=== PATIENT | female | born 1970 | race African-American/Black ===

== ENCOUNTER 2016-11-27 12:27 | Inpatient (IN) | payer OTHER ==
--- NOTE | 2016-11-27 18:33 | HP ---
Admission ROS [facility] - [facility] Chief Complaint: I WANT TO GO TO REHAB Allergies/Adverse Reactions: Allergies Allergy/AdvReac Type Severity Reaction Status Date / Time No Known Allergies Allergy Verified 11/27/16 17:26 History of Present Illness: 46 YEARS OLD FEMALE WITH LONG HISTORY OF ALCOHOL COCAINE NICOTINE DEPENDENCE HAS GERD AND SEIZURE IS ADMITTED TO REHAB Exam Limitations: No Limitations - Ebola screening Have you traveled outside of the country in the last 21 days: No Have you had contact with anyone from an Ebola affected area: No Have you been sick,other than usual withdrawal symptoms: No Do you have a fever: No - Review of Systems Constitutional: Weight Stable EENT: reports: No Symptoms Reported Respiratory: reports: No Symptoms reported Cardiac: reports: No Symptoms Reported GI: reports: Indigestion : reports: No Symptoms Reported Musculoskeletal: reports: No Symptoms Reported Integumentary: reports: No Symptoms Reported Neuro: reports: Seizure (SINCE - LAST EPISODE 2007) Endocrine: reports: No Symptoms Reported Hematology: reports: No Symptoms Reported Psychiatric: reports: Judgement Intact, Orientated x3 Other Systems: Reviewed and Negative Patient History - Patient Medical History Hx Anemia: No Hx Asthma: No Hx Chronic Obstructive Pulmonary Disease (COPD): No Hx Cancer: No Hx Cardiac Disorders: No Hx Congestive Heart Failure: No Hx Hypertension: No Hx Hypercholesterolemia: No Hx Pacemaker: No HX Cerebrovascular Accident: No Hx Seizures: Yes Hx Dementia: No Hx Diabetes: No Hx Gastrointestinal Disorders: Yes Hx Liver Disease: No Hx Genitourinary Disorders: No Hx Sexually Transmitted Disorders: No Hx Renal Disease (ESRD): No Hx Thyroid Disease: No Hx Human Immunodeficiency Virus (HIV): No Hx Hepatitis C: No Hx Depression: No Hx Suicide Attempt: No Hx Bipolar Disorder: Yes Hx Schizophrenia: No - Patient Surgical History Past Surgical History: Yes Hx Neurologic Surgery: No Hx Cataract Extraction: No Hx Cardiac Surgery: No Hx Lung Surgery: No Hx Breast Surgery: No Hx Breast Biopsy: No Hx Abdominal Surgery: No Hx Appendectomy: No Hx Cholecystectomy: Yes (2014) Hx Genitourinary Surgery: No Hx Section: No Hx Orthopedic Surgery: No Hx Hysterectomy: No Anesthesia Reaction: No - PPD History Previous Implant?: Yes Documented Results: Negative w/o proof Implanted On Prior [facility] Admission?: No PPD to be Administered?: Yes - Reproductive History Patient is a Female of Child Bearing Age (11 -55 yrs old): Yes Last Menstrual Period: 11/25/16 Patient : No - Smoking Cessation Smoking history: Current every day smoker Have you smoked in the past 12 months: Yes Aproximately how many cigarettes per day: 10 Cigars Per Day: 0 Hx Chewing Tobacco Use: No Initiated information on smoking cessation: Yes 'Breaking Loose' booklet given: 11/27/16 - Substance & Tx. History Hx Alcohol Use: No (I DO NOT DRINK ALCOHOL) Hx Substance Use: Yes Substance Use Type: Alcohol, Cocaine Hx Substance Use Treatment: Yes - Substances Abused COCAINE Route: Smoking Frequency: Daily Amount used: 300$ Age of first use: 24 Date of Last Use: 11/26/16 Family Disease History - Family Disease History Family Disease History: Diabetes: Father, Heart Disease: Father, Mother ( ), Brother (CARDIAC PACE MAKER), Sister Admission Physical Exam [facility] - Vital Signs Vital Signs: Vital Signs - 24 hr 11/27/16 11/27/16 13:06 13:20 Temperature 96.5 F L 97.6 F Pulse Rate 84 81 Respiratory 20 20 Rate Blood Pressure 123/94 112/56 - Physical General Appearance: Yes: No Apparent Distress, Appropriately Dressed, Obese HEENTM: Yes: Hearing grossly Normal, Normal ENT Inspection, Normocephalic, Normal Voice Respiratory: Yes: Chest Non-Tender, Lungs Clear, Normal Breath Sounds, No Respiratory Distress, No Accessory Muscle Use Neck: Yes: Supple, Trachea in good position Breast: Yes: Breasts Symetrical Cardiology: Yes: Regular Rhythm, Regular Rate, S1, S2 Abdominal: Yes: Non Tender, Soft Genitourinary: Yes: Within Normal Limits Back: Yes: Normal Inspection Musculoskeletal: Yes: full range of Motion, Gait Steady Extremities: Yes: Normal Range of Motion, Non-Tender Neurological: Yes: Fully Oriented, Alert, Motor Strength 5/5, Normal Response, Other (BIPOLAR) Integumentary: Yes: Warm Lymphatic: Yes: Within Normal Limits - Diagnostic (1) Cocaine dependence, uncomplicated Current Visit: Yes Status: Acute (2) Nicotine dependence Current Visit: Yes Status: Acute Qualifiers: Nicotine product type: cigarettes Substance use status: in withdrawal Qualified Code(s): F17.213 - Nicotine dependence, cigarettes, with withdrawal (3) GERD (gastroesophageal reflux disease) Current Visit: Yes Status: Acute Qualifiers: Esophagitis presence: without esophagitis Qualified Code(s): K21.9 - Gastro-esophageal reflux disease without esophagitis (4) Seizure disorder Current Visit: Yes Status: Acute (5) Bipolar II disorder Current Visit: Yes Status: Suspected Cleared for Admission [facility] - Detox or Rehab [facility] Level of Care: Observation Bed Detox Regimen/Protocol: Not Applicable Claeared for Rehab Admission: Yes [facility] Breath Alcohol Content Breath Alcohol Content: 0.026 Vital Signs - Vital Signs Vital Signs Refused: No BP Location: Left Arm - Height Height: 5 ft - Weight Weight: 222 lb Weight Measurement Method: Standing Scale Body Mass Index (BMI): 43.3 - Bowel Function Bowel Movement: Yes Urine Pregancy Test - Result Urine Test Results: Negative- NO Line Present Urine Drug Screen - Control Is Test Valid: Yes - Results Drug Screen Negative: No Urine Drug Screen Results: KEESHA-Cocaine
[2016-11-27 18:39] VITALS: BMI 43.3
[2016-11-27] MEDS ORDERED: LOPERAMIDE HCL 2 MG CAPSULE PO PRN (18:43)
[2016-11-27] MEDS ORDERED: MAGNESIUM HYDROX 2400MG/30ML ORAL SUSPENSION 30 ML CUP PO PRN (18:43)
[2016-11-27] MEDS ORDERED: guaiFENesin/D-METHORPHAN HB 10 ML UNIT-DOSE CUPS PO PRN (18:43)
[2016-11-27] MEDS ORDERED: hydrOXYzine PAMOATE 50 MG CAPSULE (FP) PO PRN (18:43)
[2016-11-27] MEDS ORDERED: MAGNESIUM CITRATE 300 ML BOTTLE PO PRN (18:43)
[2016-11-27] MEDS ORDERED: P-EPHED 60MG/TRIPROLIDI 2.5MG TABLET PO PRN (18:43)
[2016-11-27] MEDS ORDERED: MENTHOL/PHENOL 1 EACH UD MM PRN (18:43)
[2016-11-27] MEDS ORDERED: TUBERCULIN PPD 5 TU/0.1ML VIAL ID ONE (22:47)
[2016-11-27] MEDS: THIAMINE HCL 100 MG TABLET (FP) PO SCH (22:51)
[2016-11-27] MEDS: RANITIDINE HCL 150 MG TABLET (FP) PO SCH (22:51)
[2016-11-27 23:13] LABS: URINE APPEARANCE SLCLOUDY; URINE BILIRUBIN NEGATIVE (NEGATIVE); URINE BLOOD NEGATIVE (NEGATIVE); URINE COLOR YELLOW; URINE GLUCOSE (UA) NEGATIVE (NEGATIVE); URINE KETONE NEGATIVE (NEGATIVE); URINE LEUK ESTERASE NEGATIVE (NEGATIVE); URINE NITRITE NEGATIVE (NEGATIVE); URINE PROTEIN NEGATIVE (NEGATIVE); URINE UROBILINOGEN NEGATIVE E.U./dl (0.2-1.0)
[2016-11-28] MEDS: carBAMazepine 200 MG TABLET PO SCH ×3 (07:50→18:25)
[2016-11-28 10:02] LABS: MCH 28.2 pg (25.7-33.7); MCHC 32.8 g/dl (32.0-36.0); MEAN PLT VOLUME 9.7 fl (7.5-11.1); PLATELET COUNT 223 K/MM3 (134-434); RDW 15.1 % (11.6-15.6); WHITE BLOOD COUNT 5.6 K/mm3 (4.0-10.0)
[2016-11-28 10:22] LABS: ALBUMIN 3.2 g/dl (3.4-5.0); ALK PHOS 82 U/L (45-117); ANION GAP 8 (8-16); BILIRUBIN,TOTAL 0.3 mg/dL (0.2-1.0); CALCIUM 8.6 mg/dL (8.5-10.1); CO2 25 mmol/L (21-32); CREATININE 0.7 mg/dL (0.55-1.02); GLUCOSE,RANDOM 82 mg/dL (74-106); SGOT/AST 8 U/L (15-37); SGPT/ALT 16 U/L (12-78); TOT PROT 6.9 g/dl (6.4-8.2)
[2016-11-28 10:45] LABS: HIV 1 & 2 AB NEGATIVE; HIV 1 AGp24 NEGATIVE
[2016-11-28] MEDS: RANITIDINE HCL 150 MG TABLET (FP) PO SCH ×2 (10:57→22:06)
[2016-11-28] MEDS: PRENATAL VITAMINS W/ FOLIC ACID TABLET (FP) PO SCH (10:57)
[2016-11-28] MEDS: NICOTINE 14 MG/24 HOURS TOPICAL PATCH TD SCH (10:58)
[2016-11-28] MEDS ORDERED: PT OWN MED DRAWER 7, Y5N ONE ×2 (13:36→18:01)
--- NOTE | 2016-11-28 16:27 | EKG ---
Test Reason : Blood Pressure : / mmHG Vent. Rate : 068 BPM Atrial Rate : 068 BPM P-R Int : 142 ms QRS Dur : 094 ms QT Int : 398 ms P-R-T Axes : 053 049 044 degrees QTc Int : 423 ms NORMAL SINUS RHYTHM NORMAL ECG NO PREVIOUS ECGS AVAILABLE Confirmed by ENEDINA BETANCOURT MD ([id number]) on 11/28/2016 4:26:43 PM Referred By: Cindy Schwarz Confirmed By:ENEDINA BETANCOURT MD
[2016-11-28] MEDS: THIAMINE HCL 100 MG TABLET (FP) PO SCH (22:06)
[2016-11-29] MEDS ORDERED: PT OWN MED DRAWER 7, Y5N ONE ×3 (06:04→14:06)
[2016-11-29] MEDS: carBAMazepine 200 MG TABLET PO SCH ×3 (07:17→19:03)
--- NOTE | 2016-11-29 09:56 | HP ---
Psychiatrist Admission - Data Date of interview: 11/29/16 Admission source: [facility] Identifying data: This is the first admission to [address] [place] [address] [facility] for this 46 years old AA female mother of 6 grown children, domiciled,unemployed,supported by PA. Medical History: Significant for GERD,Seizure disorder,Obesity,H/O Cholecystectomy. Psychiatric History: No previous psychiatric history except depressed mood, anxiety at times.She was prescribed Diazepam on and off by her Family doctor. Physical/Sexual Abuse/Trauma History: denies Vital Signs: Vital Signs - 24 hr 11/29/16 11/29/16 11/29/16 00:30 03:30 07:50 Temperature 98.1 F Pulse Rate 67 Respiratory 18 18 18 Rate Blood Pressure 93/64 Allergies/Adverse Reactions: Allergies Allergy/AdvReac Type Severity Reaction Status Date / Time No Known Allergies Allergy Verified 11/27/16 17:26 Date of last physical exam: 11/27/16 Concur with the findings of this exam: Yes - Substance Abuse/Tx History Hx Alcohol Use: No Hx Substance Use: Yes (crack/cocaine since 24 yo progressed to daily use) Substance Use Type: Cocaine Hx Substance Use Treatment: Yes (never completed,4 years of abstinence-longest) - Admission Criteria Previous failed treatment: Yes Poor recovery environment: Yes Comorbidities: Yes Lacks judgement: Yes Mental Status Exam - Mental Status Exam Alert and Oriented to: Time, Place, Person Cognitive Function: Grossly Intact Patient Appearance: Unkempt Mood: Sad Affect: Mood Congruent Patient Behavior: Cooperative Speech Pattern: Clear Voice Loudness: Normal Thought Process: Goal Oriented Thought Disorder: Not Present Hallucinations: Denies Suicidal Ideation: Denies Homicidal Ideation: Denies Insight/Judgement: Fair Sleep: Fair Appetite: Weight gain Muscle strength/Tone: Normal Gait/Station: Normal Psychiatric Findings - Problem List ([place] 1, 2,3) (1) Cocaine dependence, uncomplicated Current Visit: Yes Status: Chronic (2) GERD (gastroesophageal reflux disease) Current Visit: Yes Status: Chronic Qualifiers: Esophagitis presence: without esophagitis Qualified Code(s): K21.9 - Gastro-esophageal reflux disease without esophagitis (3) Nicotine dependence Current Visit: Yes Status: Chronic Qualifiers: Nicotine product type: cigarettes Substance use status: in withdrawal Qualified Code(s): F17.213 - Nicotine dependence, cigarettes, with withdrawal (4) Seizure disorder Current Visit: Yes Status: Chronic (5) Substance induced mood disorder Current Visit: Yes Status: Chronic - Initial Treatment Plan Initial Treatment Plan: Benadryl 50 mg po hs PRN for insomnia.Will monitor progress.
[2016-11-29] MEDS: PRENATAL VITAMINS W/ FOLIC ACID TABLET (FP) PO SCH (10:51)
[2016-11-29] MEDS: RANITIDINE HCL 150 MG TABLET (FP) PO SCH ×2 (10:51→21:57)
[2016-11-29] MEDS: NICOTINE 14 MG/24 HOURS TOPICAL PATCH TD SCH (10:52)
[2016-11-29] MEDS: NICOTINE POLACRILEX 2 MG GUM BC PRN (10:53)
--- NOTE | 2016-11-29 13:49 | PN ---
[facility] Progress Note Note: Tegretol level is low P : Tegretol 200mg po stat repeat level in 2-4 days
[2016-11-29] MEDS ORDERED: carBAMazepine 200 MG TABLET PO ONE (14:02)
[2016-11-29] MEDS: ACETAMINOPHEN 325 MG TABLET (FP) PO PRN ×2 (14:14→19:04)
[2016-11-29] MEDS: diphenhydrAMINE HCL 50 MG CAPSULE PO PRN (21:57)
[2016-11-29] MEDS: THIAMINE HCL 100 MG TABLET (FP) PO SCH (21:57)
[2016-11-30] MEDS: NICOTINE POLACRILEX 2 MG GUM BC PRN ×2 (06:41→10:42)
[2016-11-30] MEDS: ACETAMINOPHEN 325 MG TABLET (FP) PO PRN ×3 (06:42→21:50)
[2016-11-30] MEDS: carBAMazepine 200 MG TABLET PO SCH ×3 (07:10→17:10)
[2016-11-30] MEDS: NICOTINE 14 MG/24 HOURS TOPICAL PATCH TD SCH (10:41)
[2016-11-30] MEDS: PRENATAL VITAMINS W/ FOLIC ACID TABLET (FP) PO SCH (10:41)
[2016-11-30] MEDS: RANITIDINE HCL 150 MG TABLET (FP) PO SCH ×2 (10:41→21:50)
[2016-11-30] MEDS: THIAMINE HCL 100 MG TABLET (FP) PO SCH (21:50)
[2016-11-30] MEDS: diphenhydrAMINE HCL 50 MG CAPSULE PO PRN (21:50)
[2016-12-01] MEDS: ACETAMINOPHEN 325 MG TABLET (FP) PO PRN ×2 (06:13→12:01)
[2016-12-01] MEDS: NICOTINE POLACRILEX 2 MG GUM BC PRN ×2 (06:14→09:21)
[2016-12-01] MEDS: carBAMazepine 200 MG TABLET PO SCH ×3 (07:10→17:30)
[2016-12-01] MEDS: MAG HYDROX/AL HYDROX/SIMETH 30 ML UNIT-DOSE CUP PO PRN ×3 (07:10→17:30)
[2016-12-01] MEDS: NICOTINE 14 MG/24 HOURS TOPICAL PATCH TD SCH (09:20)
[2016-12-01] MEDS: PRENATAL VITAMINS W/ FOLIC ACID TABLET (FP) PO SCH (09:20)
[2016-12-01] MEDS: RANITIDINE HCL 150 MG TABLET (FP) PO SCH ×2 (09:20→21:52)
[2016-12-01] MEDS: THIAMINE HCL 100 MG TABLET (FP) PO SCH (21:52)
[2016-12-02] MEDS: MAG HYDROX/AL HYDROX/SIMETH 30 ML UNIT-DOSE CUP PO PRN (06:27)
[2016-12-02] MEDS: ACETAMINOPHEN 325 MG TABLET (FP) PO PRN ×2 (06:27→21:43)
[2016-12-02] MEDS: NICOTINE POLACRILEX 2 MG GUM BC PRN ×2 (06:28→10:49)
[2016-12-02] MEDS: carBAMazepine 200 MG TABLET PO SCH ×3 (07:44→17:04)
[2016-12-02] MEDS: NICOTINE 14 MG/24 HOURS TOPICAL PATCH TD SCH (10:48)
[2016-12-02] MEDS: RANITIDINE HCL 150 MG TABLET (FP) PO SCH ×2 (10:48→21:41)
[2016-12-02] MEDS: PRENATAL VITAMINS W/ FOLIC ACID TABLET (FP) PO SCH (10:48)
[2016-12-02] MEDS ORDERED: PT OWN MED DRAWER 7, Y5N ONE (17:00)
[2016-12-02] MEDS: COLLOIDAL OATMEAL 1 BAR EACH TP PRN (17:04)
[2016-12-02] MEDS: AMMONIUM LACTATE 12% LOTION 225 GM BOTTLE TP PRN (17:04)
[2016-12-02] MEDS: THIAMINE HCL 100 MG TABLET (FP) PO SCH (21:41)
[2016-12-03] MEDS: ACETAMINOPHEN 325 MG TABLET (FP) PO PRN ×2 (06:29→21:45)
[2016-12-03] MEDS: carBAMazepine 200 MG TABLET PO SCH ×3 (07:10→21:45)
[2016-12-03] MEDS: RANITIDINE HCL 150 MG TABLET (FP) PO SCH ×2 (10:38→21:45)
[2016-12-03] MEDS: PRENATAL VITAMINS W/ FOLIC ACID TABLET (FP) PO SCH (10:38)
[2016-12-03] MEDS: NICOTINE 14 MG/24 HOURS TOPICAL PATCH TD SCH (10:40)
[2016-12-03] MEDS: THIAMINE HCL 100 MG TABLET (FP) PO SCH (21:45)
[2016-12-03] MEDS: diphenhydrAMINE HCL 50 MG CAPSULE PO PRN (21:46)
[2016-12-04] MEDS: ACETAMINOPHEN 325 MG TABLET (FP) PO PRN (06:49)
[2016-12-04] MEDS: NICOTINE POLACRILEX 2 MG GUM BC PRN ×3 (06:50→13:18)
[2016-12-04] MEDS: carBAMazepine 200 MG TABLET PO SCH ×3 (07:52→17:40)
[2016-12-04] MEDS ORDERED: PT OWN MED DRAWER 7, Y5N ONE (09:17)
[2016-12-04] MEDS: RANITIDINE HCL 150 MG TABLET (FP) PO SCH ×2 (10:46→22:56)
[2016-12-04] MEDS: PRENATAL VITAMINS W/ FOLIC ACID TABLET (FP) PO SCH (10:46)
[2016-12-04] MEDS: AMMONIUM LACTATE 12% LOTION 225 GM BOTTLE TP PRN (10:47)
[2016-12-04] MEDS: NICOTINE 14 MG/24 HOURS TOPICAL PATCH TD SCH (10:48)
[2016-12-04] MEDS: IBUPROFEN 400 MG TABLET (FP) PO PRN (15:54)
[2016-12-04] MEDS: THIAMINE HCL 100 MG TABLET (FP) PO SCH (22:56)
[2016-12-05] MEDS: IBUPROFEN 400 MG TABLET (FP) PO PRN (06:20)
[2016-12-05] MEDS: NICOTINE POLACRILEX 2 MG GUM BC PRN ×3 (06:21→16:07)
[2016-12-05] MEDS: carBAMazepine 200 MG TABLET PO SCH ×3 (07:48→18:10)
[2016-12-05] MEDS ORDERED: PT OWN MED DRAWER 7, Y5N ONE ×3 (08:56→22:04)
--- NOTE | 2016-12-05 10:49 | PN ---
Psychiatric Progress Note Vital Signs: Vital Signs Period Temp Pulse Resp BP Sys/Verde Pulse Ox Last 24 Hr 97.7 F 66 18-18 120/81 Date of Session: 12/05/16 Chief Complaint:: "insomnia" HPI: Patient is addressing cocaine, nicotine dependence comorbid substance induced mood disorder. ROS: Significant for GERD,Seizure disorder,Obesity,H/O Cholecystectomy. Current Medications: Active Medications Generic Name Dose Route Start Last Admin Trade Name Freq PRN Reason Stop Dose Admin Acetaminophen 650 mg 11/27/16 18:43 12/04/16 06:49 Tylenol - PO 650 mg Q4H PRN Administration PAIN Al Hydroxide/Mg Hydroxide 30 ml 11/27/16 18:43 12/02/16 06:27 Mylanta Oral Suspension - PO 30 ml Q6H PRN Administration DYSPEPSIA Carbamazepine 200 mg 11/28/16 08:00 12/05/16 07:48 Tegretol - PO 200 mg TIDCM DAVON Administration Colloidal Oatmeal 1 applic 12/02/16 11:59 12/02/16 17:04 Aveeno Soap - TP 1 bar DAILY PRN Administration HYGEINE Diphenhydramine HCl 100 mg 12/05/16 22:00 Benadryl - PO HS DAVON Eucalyptus/Menthol/Phenol/Sorbitol 1 each 11/27/16 18:43 Cepastat Lozenge - MM Q4H PRN SORE THROAT Guaifenesin 10 ml 11/27/16 18:43 Robitussin Dm - PO Q6H PRN COUGH Hydroxyzine Pamoate 50 mg 11/27/16 18:43 Vistaril - PO Q4H PRN AGITATION Ibuprofen 800 mg 12/04/16 14:38 12/05/16 06:20 Motrin - PO 800 mg Q6H PRN Administration FEVER Lactic Acid 1 applic 12/02/16 11:59 12/04/16 10:47 Lac-Hydrin 12 TP 1 applic BID PRN Administration DRY SKIN Loperamide HCl 4 mg 11/27/16 18:43 Imodium - PO Q6H PRN DIARRHEA Magnesium Citrate 300 ml 11/27/16 18:43 Citroma - PO Q48H PRN CONSTIPATION Magnesium Hydroxide 30 ml 11/27/16 18:43 Milk Of Magnesia - PO DAILY PRN CONSTIPATION Nicotine 14 mg 11/28/16 10:00 12/04/16 10:48 Nicoderm Patch - TD Not Given DAILY DAVON Nicotine Polacrilex 2 mg 11/27/16 18:43 12/05/16 06:21 Nicorette Gum - BC 2 mg Q2H PRN Administration NICOTINE REPLACEMENT RX Multivit/Folic Acid/Iron 1 tab 11/28/16 10:00 12/04/16 10:46 Vitamins ([facility]) - PO 1 tab DAILY DAVON Administration Pseudoephedrine/Triprolidine 1 combo 11/27/16 18:43 Actifed - PO TID PRN NASAL CONGESTION Ranitidine HCl 150 mg 11/27/16 22:00 12/04/16 22:56 Zantac - PO 150 mg BID DAVON Administration Thiamine HCl 100 mg 11/27/16 22:00 12/04/16 22:56 Vitamin B1 - PO 100 mg HS DAVON Administration Current Side Effect: No Lab tests ordered: No Lab tests reviewed: Yes Provider note:: Reviewed the chart met with the patient who c/o insomnia, states that she takes 100 mg po hs which she finds more effective than 50 mg po hs, psychoeducation and sleeping hygiene discussed with the patient, will increase Benadryl, continue to monitor progress. Total face to face time:: 30 Mental Status Exam - Mental Status Exam Alert and Oriented to: Time, Place, Person Cognitive Function: Grossly Intact Patient Appearance: Well Groomed Mood: Hopeful Affect: Appropriate, Mood Congruent Patient Behavior: Appropriate, Cooperative Speech Pattern: Clear, Appropriate Voice Loudness: Normal Thought Process: Intact, Goal Oriented Thought Disorder: Not Present Hallucinations: Denies Suicidal Ideation: Denies Homicidal Ideation: Denies Insight/Judgement: Fair Sleep: Poorly, Difficulty falling asleep Appetite: Fair Muscle strength/Tone: Normal Gait/Station: Normal Psychiatric Treatment Plan - Problem List (1) Cocaine dependence, uncomplicated Current Visit: Yes (2) GERD (gastroesophageal reflux disease) Current Visit: Yes Qualifiers: Esophagitis presence: without esophagitis Qualified Code(s): K21.9 - Gastro-esophageal reflux disease without esophagitis (3) Nicotine dependence Current Visit: Yes Qualifiers: Nicotine product type: cigarettes Substance use status: in withdrawal Qualified Code(s): F17.213 - Nicotine dependence, cigarettes, with withdrawal (4) Seizure disorder Current Visit: Yes (5) Substance induced mood disorder Current Visit: Yes
[2016-12-05] MEDS: NICOTINE 14 MG/24 HOURS TOPICAL PATCH TD SCH (10:56)
[2016-12-05] MEDS: RANITIDINE HCL 150 MG TABLET (FP) PO SCH ×2 (10:56→21:51)
[2016-12-05] MEDS: PRENATAL VITAMINS W/ FOLIC ACID TABLET (FP) PO SCH (10:56)
[2016-12-05] MEDS: THIAMINE HCL 100 MG TABLET (FP) PO SCH (21:51)
[2016-12-05] MEDS: diphenhydrAMINE HCL 50 MG CAPSULE PO SCH (21:51)
[2016-12-06] MEDS: IBUPROFEN 400 MG TABLET (FP) PO PRN ×2 (07:04→18:10)
[2016-12-06] MEDS: carBAMazepine 200 MG TABLET PO SCH ×3 (07:04→18:10)
[2016-12-06] MEDS: NICOTINE POLACRILEX 2 MG GUM BC PRN ×2 (07:04→18:11)
[2016-12-06] MEDS: PRENATAL VITAMINS W/ FOLIC ACID TABLET (FP) PO SCH (10:32)
[2016-12-06] MEDS: RANITIDINE HCL 150 MG TABLET (FP) PO SCH ×2 (10:32→22:03)
[2016-12-06] MEDS: NICOTINE 14 MG/24 HOURS TOPICAL PATCH TD SCH (10:33)
[2016-12-06] MEDS: diphenhydrAMINE HCL 50 MG CAPSULE PO SCH (22:03)
[2016-12-06] MEDS: THIAMINE HCL 100 MG TABLET (FP) PO SCH (22:03)
[2016-12-07] MEDS: NICOTINE POLACRILEX 2 MG GUM BC PRN (06:56)
[2016-12-07] MEDS: carBAMazepine 200 MG TABLET PO SCH ×3 (07:04→18:50)
[2016-12-07] MEDS: IBUPROFEN 400 MG TABLET (FP) PO PRN ×2 (07:14→18:51)
[2016-12-07] MEDS: AMMONIUM LACTATE 12% LOTION 225 GM BOTTLE TP PRN (07:17)
[2016-12-07] MEDS: HYDROCORTISONE 1% TOPICAL CREAM 30 GM TUBE TP PRN (07:17)
[2016-12-07] MEDS ORDERED: PT OWN MED DRAWER 7, Y5N ONE (07:18)
[2016-12-07] MEDS: RANITIDINE HCL 150 MG TABLET (FP) PO SCH ×2 (10:56→22:00)
[2016-12-07] MEDS: NICOTINE 14 MG/24 HOURS TOPICAL PATCH TD SCH (10:56)
[2016-12-07] MEDS: PRENATAL VITAMINS W/ FOLIC ACID TABLET (FP) PO SCH (10:56)
[2016-12-07] MEDS: THIAMINE HCL 100 MG TABLET (FP) PO SCH (22:00)
[2016-12-07] MEDS: diphenhydrAMINE HCL 50 MG CAPSULE PO SCH (22:00)
[2016-12-08] MEDS: IBUPROFEN 400 MG TABLET (FP) PO PRN (06:33)
[2016-12-08] MEDS: carBAMazepine 200 MG TABLET PO SCH ×3 (07:03→17:07)
[2016-12-08] MEDS: AMMONIUM LACTATE 12% LOTION 225 GM BOTTLE TP PRN (11:05)
[2016-12-08] MEDS: PRENATAL VITAMINS W/ FOLIC ACID TABLET (FP) PO SCH (11:05)
[2016-12-08] MEDS: RANITIDINE HCL 150 MG TABLET (FP) PO SCH ×2 (11:05→21:55)
[2016-12-08] MEDS: NICOTINE 14 MG/24 HOURS TOPICAL PATCH TD SCH (11:06)
[2016-12-08] MEDS: ACETAMINOPHEN 325 MG TABLET (FP) PO PRN (17:53)
[2016-12-08] MEDS: THIAMINE HCL 100 MG TABLET (FP) PO SCH (21:55)
[2016-12-08] MEDS: diphenhydrAMINE HCL 50 MG CAPSULE PO SCH (21:56)
[2016-12-09] MEDS: IBUPROFEN 400 MG TABLET (FP) PO PRN ×2 (07:28→14:30)
[2016-12-09] MEDS: carBAMazepine 200 MG TABLET PO SCH ×3 (07:29→17:21)
[2016-12-09] MEDS ORDERED: PT OWN MED DRAWER 7, Y5N ONE (09:05)
[2016-12-09] MEDS: RANITIDINE HCL 150 MG TABLET (FP) PO SCH ×2 (10:41→21:47)
[2016-12-09] MEDS: PRENATAL VITAMINS W/ FOLIC ACID TABLET (FP) PO SCH (10:41)
[2016-12-09] MEDS: NICOTINE 14 MG/24 HOURS TOPICAL PATCH TD SCH (10:42)
[2016-12-09] MEDS: NICOTINE POLACRILEX 2 MG GUM BC PRN (10:43)
[2016-12-09] MEDS: HYDROCORTISONE 1% TOPICAL CREAM 30 GM TUBE TP PRN (10:44)
[2016-12-09] MEDS: THIAMINE HCL 100 MG TABLET (FP) PO SCH (21:47)
[2016-12-09] MEDS: diphenhydrAMINE HCL 50 MG CAPSULE PO SCH (21:48)
[2016-12-09] MEDS: traZODone HCL 50 MG TABLET (FP) PO SCH (21:48)
[2016-12-10] MEDS: ACETAMINOPHEN 325 MG TABLET (FP) PO PRN (06:10)
[2016-12-10] MEDS: carBAMazepine 200 MG TABLET PO SCH ×3 (07:44→17:25)
[2016-12-10] MEDS: RANITIDINE HCL 150 MG TABLET (FP) PO SCH ×2 (09:53→21:56)
[2016-12-10] MEDS: NICOTINE 14 MG/24 HOURS TOPICAL PATCH TD SCH (09:53)
[2016-12-10] MEDS: PRENATAL VITAMINS W/ FOLIC ACID TABLET (FP) PO SCH (09:53)
[2016-12-10] MEDS: NICOTINE POLACRILEX 2 MG GUM BC PRN (09:54)
[2016-12-10] MEDS: IBUPROFEN 400 MG TABLET (FP) PO PRN (17:25)
[2016-12-10] MEDS: MAG HYDROX/AL HYDROX/SIMETH 30 ML UNIT-DOSE CUP PO PRN (19:43)
[2016-12-10] MEDS: COLLOIDAL OATMEAL 1 BAR EACH TP PRN (19:44)
[2016-12-10] MEDS: traZODone HCL 50 MG TABLET (FP) PO SCH (21:56)
[2016-12-10] MEDS: THIAMINE HCL 100 MG TABLET (FP) PO SCH (21:56)
[2016-12-10] MEDS: diphenhydrAMINE HCL 50 MG CAPSULE PO SCH (21:56)
[2016-12-11] MEDS: MAG HYDROX/AL HYDROX/SIMETH 30 ML UNIT-DOSE CUP PO PRN (06:21)
[2016-12-11] MEDS: IBUPROFEN 400 MG TABLET (FP) PO PRN (06:21)
[2016-12-11 07:44] VITALS: BP 113/78; PULSE 77; TEMP 98.4
[2016-12-11] MEDS: carBAMazepine 200 MG TABLET PO SCH (07:50)
[2016-12-11] MEDS: NICOTINE POLACRILEX 2 MG GUM BC PRN (07:51)
--- NOTE | 2016-12-11 09:00 | PN ---
[id number] F 77-90 18-18 113-128/68-78 Date of Session: 12/11/16 Chief Complaint:: Discharge visit HPI: Patient addressed Cocaine dependence comorbid with Substance induced mood disorder. ROS: Signififcant for Seizure disorder,GERD, Current Medications: Active Medications Generic Name Dose Route Start Last Admin Trade Name Freq PRN Reason Stop Dose Admin Acetaminophen 650 mg 11/27/16 18:43 12/10/16 06:10 Tylenol - PO 650 mg Q4H PRN Administration PAIN Al Hydroxide/Mg Hydroxide 30 ml 11/27/16 18:43 12/11/16 06:21 Mylanta Oral Suspension - PO 30 ml Q6H PRN Administration DYSPEPSIA Carbamazepine 200 mg 11/28/16 08:00 12/11/16 07:50 Tegretol - PO 200 mg TIDCM DAVON Administration Colloidal Oatmeal 1 applic 12/02/16 11:59 12/10/16 19:44 Aveeno Soap - TP 1 bar DAILY PRN Administration HYGEINE Diphenhydramine HCl 100 mg 12/05/16 22:00 12/10/16 21:56 Benadryl - PO 100 mg HS DAVON Administration Eucalyptus/Menthol/Phenol/Sorbitol 1 each 11/27/16 18:43 Cepastat Lozenge - MM Q4H PRN SORE THROAT Guaifenesin 10 ml 11/27/16 18:43 Robitussin Dm - PO Q6H PRN COUGH Hydrocortisone 1 applic 12/05/16 13:01 12/09/16 10:44 Hytone 1% Cream - TP 1 applic QID PRN Administration FOR ITCHING Hydroxyzine Pamoate 50 mg 11/27/16 18:43 Vistaril - PO Q4H PRN AGITATION Ibuprofen 800 mg 12/04/16 14:38 12/11/16 06:21 Motrin - PO 800 mg Q6H PRN Administration FEVER Lactic Acid 1 applic 12/02/16 11:59 12/08/16 11:05 Lac-Hydrin 12 TP 1 applic BID PRN Administration DRY SKIN Loperamide HCl 4 mg 11/27/16 18:43 Imodium - PO Q6H PRN DIARRHEA Magnesium Citrate 300 ml 11/27/16 18:43 Citroma - PO Q48H PRN CONSTIPATION Magnesium Hydroxide 30 ml 11/27/16 18:43 Milk Of Magnesia - PO DAILY PRN CONSTIPATION Nicotine 14 mg 11/28/16 10:00 12/10/16 09:53 Nicoderm Patch - TD Not Given DAILY DAVON Nicotine Polacrilex 2 mg 11/27/16 18:43 12/11/16 07:51 Nicorette Gum - BC 2 mg Q2H PRN Administration NICOTINE REPLACEMENT RX Multivit/Folic Acid/Iron 1 tab 11/28/16 10:00 12/10/16 09:53 Vitamins ([facility]) - PO 1 tab DAILY DAVON Administration Pseudoephedrine/Triprolidine 1 combo 11/27/16 18:43 Actifed - PO TID PRN NASAL CONGESTION Ranitidine HCl 150 mg 11/27/16 22:00 12/10/16 21:56 Zantac - PO 150 mg BID DAVON Administration Thiamine HCl 100 mg 11/27/16 22:00 12/10/16 21:56 Vitamin B1 - PO 100 mg HS DAVON Administration Trazodone HCl 50 mg 12/09/16 22:00 12/10/16 21:56 Desyrel - PO 50 mg HS DAVON Administration Current Side Effect: No Lab tests ordered: No Lab tests reviewed: Yes Provider note:: Patient completed this program today .She has met her treatment goals and will continue to address her issues on outpatient basis.Patient continues to find that Trazodone 50 mg po hs help to reduce sleeping difficulties.Script for 30 days supply provided. Therapy provided focusing on relapse prevention including coping skills,support utilization to maintain recovery. Patient is stable for discharge today. Total face to face time:: 30 Mental Status Exam - Mental Status Exam Alert and Oriented to: Time, Place, Person Cognitive Function: Grossly Intact Patient Appearance: Well Groomed Mood: Euthymic Affect: Mood Congruent Patient Behavior: Cooperative Speech Pattern: Clear Voice Loudness: Normal Thought Process: Goal Oriented Thought Disorder: Not Present Hallucinations: Denies Suicidal Ideation: Denies Homicidal Ideation: Denies Insight/Judgement: Fair Sleep: Fair Appetite: Good Muscle strength/Tone: Normal Gait/Station: Normal Psychiatric Treatment Plan - Problem List (2) GERD (gastroesophageal reflux disease) Qualifiers: Esophagitis presence: without esophagitis Qualified Code(s): K21.9 - Gastro-esophageal reflux disease without esophagitis (3) Nicotine dependence Qualifiers: Nicotine product type: cigarettes Substance use status: in withdrawal Qualified Code(s): F17.213 - Nicotine dependence, cigarettes, with withdrawal
[2016-12-11] MEDS: RANITIDINE HCL 150 MG TABLET (FP) PO SCH (09:22)
[2016-12-11] MEDS: PRENATAL VITAMINS W/ FOLIC ACID TABLET (FP) PO SCH (09:22)
[2016-12-11] MEDS: NICOTINE 14 MG/24 HOURS TOPICAL PATCH TD SCH (09:23)
== END 2016-12-11 10:00 | disposition home or self-care (01) | DRG 772 ==
LOC: YASAS 12:27 → Y3E 17:48
PROVIDERS: ADMIT Psychiatry & Neurology Psychiatry; ATTEND Psychiatry & Neurology Psychiatry
PROC: HZ42ZZZ Group Counseling for Substance Abuse Treatment, Cognitive-Behavioral (ICD-10-PCS; principal; 2016-12-11)
DX: F14.20 Cocaine dependence, uncomplicated (principal); F17.213 Nicotine dependence, cigarettes, with withdrawal; F19.24 Other psychoactive substance dependence with psychoactive substance-induced mood disorder; F31.81 Bipolar II disorder; G40.909 Epilepsy, unspecified, not intractable, without status epilepticus; K21.9 Gastro-esophageal reflux disease without esophagitis
CPT/HCPCS: 36415; 80053; 80156; 81003; 85027; 86593; 87389; 93005; 93010